=== PATIENT | male | born 1970 | race Native Hawaiian/Other Pacific Islander ===

== ENCOUNTER 2020-04-06 10:55 | Emergency (ER) | payer BC ==
[~2020-04-06] VITALS: Ht 177.8 cm; Wt 87.5 kg
[2020-04-06 10:59] VITALS: TEMP 98
[2020-04-06 14:09] LABS: PLATELET COUNT 236 K/uL (142-355)
[2020-04-06 14:18] LABS: POTASSIUM 3.7 mmol/L (3.6-5.2)
[2020-04-06 15:30] VITALS: BP 139/83
== END 2020-04-06 16:10 | disposition home or self-care (01) ==
LOC: ED 11:03
PROVIDERS: Family Medicine
PROC: 0HQ1XZZ Repair Face Skin, External Approach (ICD-10-PCS; principal; 2020-04-06)
PROC: 0CQ10ZZ Repair Lower Lip, Open Approach (ICD-10-PCS; 2020-04-06)
PROC: 09QK0ZZ Repair Nasal Mucosa and Soft Tissue, Open Approach (ICD-10-PCS; 2020-04-06)
DX: S01.81XA Laceration without foreign body of other part of head, initial encounter (principal); S01.21XA Laceration without foreign body of nose, initial encounter; S01.511A Laceration without foreign body of lip, initial encounter; V57.0XXA Driver of pick-up truck or van injured in collision with fixed or stationary object in nontraffic accident, initial encounter; Y92.89 Other specified places as the place of occurrence of the external cause
CPT/HCPCS: 36415; 80053; 80307; 80320; 81000; 85027; 96360; 96375; 99284; J1885